=== PATIENT | male | born 1985 | race Caucasian/White ===

== ENCOUNTER → 2018-09-16 08:27 | Outpatient (CLI) | payer OTHER, SELFPAY ==
[2018-09-16 10:50] LABS: Absolute Lymphocyte Count 2.79 X10^3/ul (0.83-4.51); Absolute Neutrophil Count 4.2 X10^3/uL (2.0-7.7); Basophil# 0.04 X10^3/uL; Basophil% 0.5 % (0-1); Eosinophil# 0.19 X10^3/uL; Eosinophils% 2.5 % (0-5); Hematocrit 45.2 % (40-54); Hemoglobin 15.7 g/dl (13.0-16.5); Lymphocyte # 2.79 X10^3/ul (4.0); Mean Corp Hgb Conc 34.7 g/gl (32-36); Mean Corpuscular Hgb 29.7 pg (27.0-32.0); Mean Corpuscular Volume 85.4 fL (80-94); Mean Platelet Vol. 10.5 fl (6.2-12.0); Monocyte# 0.48 X10^3/uL; Monocyte% 6.2 % (0-10); Neutrophil # 4.21 X10^3/uL (2.7-7.7); Neutrophil % 54.3 % (47-70); Platelet Count 266 K/mm3 (150-450); RBC Distribution Width CV 13.7 % (11.6-14.6); RBC Distribution Width SD 42.3 fl (35.1-43.9); Red Blood Count 5.29 M/mm3 (4.6-6.2); White Blood Count 7.8 K/mm3 (4.4-11.0)
[2018-09-16 10:51] LABS: POSITIVE COUNT NO; POSITIVE DIFFERENTIAL NO; POSITIVE MORPHOLOGY NO
[2018-09-16 11:43] LABS: Prolactin 17.2 ng/mL
== END ==
PROVIDERS: Family Provider Family Medicine; PCP Family Medicine; Visit Provider Family Medicine
DX: N52.9 Male erectile dysfunction, unspecified (principal)
CPT/HCPCS: 36415; 84146; 84403; 84443; 85025

== ENCOUNTER → 2024-02-25 | Outpatient (CLI) | payer OTHER, SELFPAY ==
[2024-02-25 10:02] LABS: Hematocrit 43.8 % (40-54); Hemoglobin 14.9 g/dL (13.0-16.5); Mean Corpuscular Volume 85.2 fL (80-94); Platelet Count 272 K/mm3 (150-450); RBC Distribution Width CV 13.2 % (11.6-14.6); RBC Distribution Width SD 40.9 fl (35.1-43.9); Red Blood Count 5.14 M/mm3 (4.6-6.2)
[2024-02-25 11:13] LABS: Anion Gap 4 (5-15); BUN 20 mg/dL (7-18); BUN/Creat Ratio 20.8 RATIO (10-20); Calcium,Total 9.2 mg/dL (8.5-10.1); Chloride 103 mmol/L (98-107); Creatinine, Serum 0.96 mg/dL (0.70-1.30); EST Glomerular Filtration Rate 92 mL/min (>60); Est Glom Filt Rate - Afr Amer 111 mL/min (>60); Glucose 99 mg/dL (74-106); Potassium 4.1 mmol/L (3.5-5.1); Sodium Level 135 mmol/L (136-145)
== END | disposition home or self-care (01) ==
PROVIDERS: PCP Family Medicine; Referring Provider Physician Assistant; Visit Provider Physician Assistant
DX: Z01.818 Encounter for other preprocedural examination (principal); Z01.810 Encounter for preprocedural cardiovascular examination
CPT/HCPCS: 36415; 80048; 85027; 93005

== ENCOUNTER 2025-06-10 12:21 | Emergency (ER) | payer OTHER, SELFPAY ==
[2025-06-10 12:23] VITALS: BP 128/83; PULSE 91; RESP 26; TEMP 36.4; O2SAT 98; BMI 51.6
--- NOTE | 2025-06-10 12:36 | EKG12_ITS ---
Test Reason : ALLERGIC REACTION Blood Pressure : */* mmHG Vent. Rate : 93 BPM Atrial Rate : 93 BPM P-R Int : 182 ms QRS Dur : 96 ms QT Int : 392 ms P-R-T Axes : 47 22 3 degrees QTcB Int : 487 ms Normal sinus rhythm Low voltage QRS QTcB >= 480 msec Abnormal ECG Confirmed by ÓSCAR KUMAR ([id number]), purchase request editor [employer] CASE ([id number]) on 06/15/2025 6:29:23 AM Referred By: Confirmed By: ÓSCAR KUMAR
--- NOTE | 2025-06-10 12:37 | EDS_ITS ---
HPI History of Present Illness Chief Complaint: Allergic Reaction Informant: patient and EMS Narrative Narrative: Patient is a 40-year-old male with history of hypertension and no other past medical history presenting for concern of anaphylactic reaction. Patient was outside working in the yard in his normal state of health when he was stung by bee on his left forearm. About 10 minutes later he stated to feel lightheaded. He was sweating. 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 When EMS arrived his blood pressure was 77/40. He was flushed. They gave him an IM injection of EpiPen (0.3 mg). His blood pressure only went up to 80/40. Given a 500 cc bolus. Was transported to the emergency room. Diagnosis currently feeling better. Denies any chest pain. Not aware of any hives or skin changes. States has had bee stings earlier this summer with no significant reaction. [facility] Medical History Hypertension Home Medications ?Medication ?Instructions ?Recorded ?Last Taken ?Type epinephrine 0.3 mg/0.3 mL 0.3 mg (0.3 mL) IM Q15M PRN 06/10/25 Unknown Rx injection, auto-injector (EpiPen anaphylaxis #2 ea 2-Nando) famotidine 20 mg tablet (Pepcid) 20 mg PO BID #14 tabs 06/10/25 Unknown Rx prednisone 20 mg tablet 40 mg (2 x 20 mg) PO DAILY # 10 06/10/25 Unknown Rx TABLETS Allergy/AdvReac Type Severity Reaction Status Date / Time bee venom protein (honey Allergy Severe Anaphylaxis Verified 06/10/25 12:23 bee) (bees) Surgical History Hx of knee surgery Social History Smoking Status: Never smoker ROS ROS ED Constitutional Constitutional ED: Reports sweats; Denies chills or fever(s) Cardiovascular Cardiovascular: Denies chest pain Respiratory/Chest Respiratory/Chest: Reports dyspnea; Denies cough Gastrointestinal Gastrointestinal: Reports nausea; Denies abdominal pain or vomiting Musculoskeletal Musculoskeletal: Denies arthralgias or myalgias Integumentary Denies rash Neurologic Neurologic: Reports weakness; Denies headache(s) Allergic/Immunologic Allergic/Immunologic ED: Denies mouth swelling, tongue swelling or urticaria EXAM Physical Exam Const Vital Signs: 06/10/25 12:23 06/10/25 12:55 06/10/25 12:55 Temperature 97.6 F L Temperature Source Oral Pulse Rate 91 90 Respiratory Rate 26 H 15 Blood Pressure 128/83 H Blood Pressure Mean 98 Pulse Ox 98 100 Oxygen Delivery Method Room Air Room Air 06/10/25 13:15 06/10/25 14:36 06/10/25 16:56 Temperature 97.1 F L Temperature Source Pulse Rate 92 90 90 Respiratory Rate 20 H 26 H 26 H Blood Pressure 136/90 H 143/91 H 143/91 H Blood Pressure Mean 105 108 108 Pulse Ox 99 97 97 Oxygen Delivery Method Room Air Room Air Positive well nourished and well developed General Appearance ED: well developed and NAD HEENT Reports moist mucous membranes HEENT Narrative: Normal oropharynx. No edema of the mouth, lips or tongue. No trismus Eyes PERRL Neck supple Chest Wall inspection of chest normal Resp normal respiratory effort Resp Narrative: Coarse breath sounds at the bases with mild and expiratory wheeze present bilaterally Cardio regular rate and regular rhythm GI normal to inspection, nondistended, normoactive bowel sounds and non-tender Extremity normal to inspection General Extremety ED: Negative for edema or tenderness General Extremity: Negative for edema Neuro oriented x3 Sensorium / Orientation: alert Motor Exam: Negative for general weakness Psych mental status grossly normal Skin Skin Narrative: Small rash on the left forearm with surrounding erythema consistent with a recent sting. No urticaria appreciated. MDM MDM MDM Narrative Medical decision making narrative: Patient evaluated for hypotension after bee sting. Suspect patient was having an anaphylactic reaction. He received IM epinephrine, 125 mg of Solu-Medrol and 50 mg of Benadryl prior to arrival via EMS. He also received a 500 cc fluid bolus. He is improving significantly. He is monitored for 4 hours in the ER given he had signs of anaphylactic shock with hypotension prior to arrival. He has returned to his baseline. Remains hemodynamically stable. Does have some slight wheezing initially and was given albuterol treatment with further improvement. He has no signs of recurrent reaction. Will be discharged with an EpiPen, Pepcid and prednisone. Counseled follow-up with primary care doctor. Given return precautions. Patient verbalized agreement understand this plan. Discharged home in stable and improved condition. Given that patient did have hypotension with a history of hypertension I will obtain EKG to ensure there is no arrhythmia or Electrolyte conduction that could have caused his hypotension and symptoms even though it really sounds like it was associated with bee/wasp sting. This was largely normal with no acute ischemia Rhythm Strip Rhythm Strip: Sinus Rhythm Rate: 93 Ectopy: None EKG Initial EKG: Attestation: I personally reviewed and interpreted this EKG as follows: Interpretation: Sinus Rhythm Comments: Normal sinus rhythm at a rate of 93 bpm Normal axis Normal intervals Normal ST segments Discharge Plan Triage Chief Complaint: Allergic Reaction ED Provider: Irena Jaramillo Dx/Rx/DC Orders Clinical Impression: Anaphylactic reaction, Wasp sting Instructions: ED BEE STING General Allergic Rxn, ED Anaphylaxis Prescriptions: New epinephrine [EpiPen 2-Nando] 0.3 mg/0.3 mL auto-injector 0.3 mg IM Q15M PRN (Reason: anaphylaxis) Qty: 2 0RF Rx Instructions: for 2 doses prednisone 20 mg tablet 40 mg PO DAILY Qty: 10 0RF famotidine [Pepcid] 20 mg tablet 20 mg PO BID Qty: 14 0RF Primary Care Provider: Dewey Dougherty Referrals: Dewey Dougherty MD [Primary Care Provider] - Activity Restrictions/Additional Instructions: I suspect she had an anaphylactic reaction to wasp sting today. If you have another similar reaction please use the EpiPen. If you do not have any improvement after 5 to 10 minutes please give yourself another dose. If you use your EpiPen please call 911 immediately. Print Language: Iranian Disposition Disposition: Home, Self Care Discharge Date/Time: 06/10/25 16:57
[2025-06-10] MEDS: Albuterol 2.5 MG/3 ML VIAL.NEB. INHALATION (12:54)
[2025-06-10 12:55] VITALS: PULSE 90; RESP 15; O2SAT 100
[2025-06-10 13:15] VITALS: BP 136/90; PULSE 92; RESP 20; O2SAT 99
[2025-06-10 14:36] VITALS: BP 143/91; PULSE 90; RESP 26; O2SAT 97
[2025-06-10 16:56] VITALS: BP 143/91; PULSE 90; RESP 26; TEMP 36.2; O2SAT 97
== END 2025-06-10 16:57 | disposition home or self-care (01) ==
PROVIDERS: Emergency Provider Emergency Medicine; PCP Family Medicine; Visit Provider Emergency Medicine
DX: T63.461A Toxic effect of venom of wasps, accidental (unintentional), initial encounter (principal); I10 Essential (primary) hypertension
CPT/HCPCS: 93005; 94640; 99284